=== PATIENT | female | born 1990 | race Caucasian/White ===

== ENCOUNTER 2017-07-06 16:45 | Emergency (ER) | payer SELFPAY ==
[~2017-07-06] VITALS: Ht 162.6 cm; Wt 56.5 kg
[2017-07-06 16:47] VITALS: BP 136/63; PULSE 82; RESP 16; TEMP 98.9; O2SAT 98
[2017-07-06] MEDS ORDERED: BENZONATATE 100 MG CAP PO ONE (17:30)
[2017-07-06] MEDS ORDERED: NAPROXEN 500 MG TAB PO ONE (17:30)
[2017-07-06] MEDS ORDERED: RESP: ALBUTEROL 2.5 MG/IPRATROPIUM 0.5 MG NEB (SCH) NEB ONE (17:30)
--- NOTE | 2017-07-06 18:24 | RADRPT ---
EXAM DATE/TIME: 07/06/2017 17:33 [place] COMPARISON: No previous studies available for comparison. INDICATIONS : Cough and congestion for two days. MEDICAL HISTORY : Smoker. SURGICAL HISTORY : None. ENCOUNTER: Initial ACUITY: 2 days PAIN SCORE: 0/10 LOCATION: Bilateral chest FINDINGS: A single view of the chest demonstrates the lungs to be symmetrically aerated without evidence of mas s, infiltrate or effusion. The cardiomediastinal contours are unremarkable. Osseous structures are intact. CONCLUSION: No acute disease. Abilio Greene MD on July 06, 2017 at 18:22 Board Certified Radiologist. This report was verified electronically.
[2017-07-06] MEDS ORDERED: AMOX875T PO (18:35)
--- NOTE | 2017-07-06 18:35 | PD ---
HPI Chief Complaint: Cold / Flu Symptoms Time Seen by Provider: 17:09 Travel History International Travel<30 days: No Contact w/Intl Traveler<30days: No Traveled to known affect area: No History of Present Illness HPI 27-year-old woman presents to the emergency department complaining of URI symptoms for the past 3 days as well as headache on the left side for the past 3 -4 weeks. Headaches in the left nondenominational, constant, and appears to be associated with a wisdom tooth on the bottom left. No subjective fevers or chills. Some nausea but no vomiting. Nausea is really with the headache. Multiple family rest been sick for the past couple days of URI symptoms. No one else has a headache for the past several weeks that she has. No history of headaches in the past. No other complaints. History Past Medical History Medical History: Denies Significant Hx Tetanus Vaccination: Unknown Influenza Vaccination: No LMP: 06/12/2017 Past Surgical History Surgical History: No Previous Surgery Social History Alcohol Use: No Tobacco Use: Yes Allergies-Medications (Allergen,Severity, Reaction): Coded Allergies: No Known Allergies (Unverified , 07/06/17) Reported Meds & Prescriptions Reported Meds & Active Scripts Active No Active Prescriptions or Reported Medications Review of Systems Except as stated in HPI: all other systems reviewed are Neg Physical Exam Narrative GENERAL: Well-appearing 27 year-old woman, no acute distress. SKIN: Focused skin assessment warm/dry. HEAD: Atraumatic. Normocephalic. EYES: Pupils equal and round. No scleral icterus. No injection or drainage. ENT: No nasal bleeding or discharge. Mucous membranes pink and moist. TMs are normal bilaterally. Bottom left wisdom tooth is decayed, exquisitely tender to palpation and percussion, and appears partially covered by gingiva. NECK: Trachea midline. No JVD. Little bit of adenopathy. No significant swelling or tenderness. CARDIOVASCULAR: Regular rate and rhythm. No murmur appreciated. RESPIRATORY: No accessory muscle use. Clear to auscultation. Breath sounds equal bilaterally. GASTROINTESTINAL: Abdomen soft, non-tender, nondistended. Hepatic and splenic margins not palpable. MUSCULOSKELETAL: No obvious deformities. No edema. NEUROLOGICAL: Awake and alert. No obvious cranial nerve deficits. Motor grossly within normal limits. Normal speech. PSYCHIATRIC: Appropriate mood and affect; insight and judgment normal. Data Data Last Documented VS Vital Signs Date Time Temp Pulse Resp B/P (MAP) Pulse Ox O2 Delivery O2 Flow Rate FiO2 07/06/17 16:47 98.9 82 16 136/63 (87) 98 Orders Orders Chest, Single Ap (07/06/17 ) Naproxen (Naprosyn) (07/06/17 17:30) Benzonatate (Tessalon) (07/06/17 17:30) Albuterol-Ipratropium Neb (Duoneb Neb) (07/06/17 17:30) MDM Medical Decision Making Medical Screen Exam Complete: Yes Emergency Medical Condition: Yes Interpretation(s) Chest x-ray: No acute disease. Differential Diagnosis URI, headache, tension headache, dental headache, sinusitis, TMJ, other Narrative Course Medical decision making 27 year-old woman of left-sided arm and headache for the past 2 weeks. This appears strongly so she with the dental problem she has in the left side. The headache seems to be started by jaw pain on that same side, and she is an obvious source. We'll treat with antibiotics. No evidence of significant sinusitis. Is no neurologic symptoms. On top of that she appears after days of URI symptoms. She looks well. She endorses some increased asthma symptoms. No wheezing or respiratory symptoms on exam. X-rays normal. Recommend supportive treatment for that. Diagnosis Primary Impression: Dentalgia Additional Impressions: Headache URI (upper respiratory infection) Additional Instructions: Continue [id number] medications as needed for upper respiratory infection symptoms. Use Aleve as needed for fever body aches and headache. Take antibiotics as prescribed. Follow-up with the dentist. Return to the emergency department for any new or worsening symptoms. Med/Other Pt SpecificInfo: Prescription(s) given Scripts Amoxicillin (Amoxicillin) 875 Mg Tab 875 MG PO BID for Infection for 10 Days, #20 TAB 0 Refills Prov: Errol Murphy MD 07/06/17 Disposition: 01 DISCHARGE HOME Condition: Stable Errol Murphy MD Jul 06, 2017 18:35
[2017-07-06] MEDS ORDERED: VENTAER INH (18:42)
== END 2017-07-06 19:45 | disposition home or self-care (01) ==
LOC: NEPD 16:45
DX: R51 Headache (principal); K08.89 Other specified disorders of teeth and supporting structures; J06.9 Acute upper respiratory infection, unspecified; J45.909 Unspecified asthma, uncomplicated; R11.0 Nausea
CPT/HCPCS: 71045; 94664; 99284